=== PATIENT | female | born 1950 | race Caucasian/White ===

== ENCOUNTER → 2016-10-02 | Outpatient (CLI) | payer OTHER ==
[~2016-10-02] VITALS: Ht 149.9 cm; Wt 97.1 kg
[~2016-10-02] MED LIST: ACCUNEB SO1.25 MG/1 INH; ADVAIR HFA 230M12 GM INH; CELEXA20 MG PO; CLARITIN10 MG PO; CLEOCIN HCL300 MG PO; HYDROCODONE-APA1 TA1 PO; METFORMIN HCL500 MG PO; MINOCIN100 MG PO; PERCOCET 5-3251 EACH PO; PRINIVIL20 MG PO; SILVADENE20 GM TP
--- NOTE | ~2016-10-02 | CATHLAB ---
[facility] [place] [address] INVASIVE PROCEDURE REPORT Name: JC CARR Room #: REG TORREY Wiseman#: [id number] Admission: 10/02/16 Attend Phys: Berny Camarillo Discharge: Date of : 48 Date of Service: 10/03/16 0954 Report #: [id number] THIS REPORT FOR: //name// CC: Berny Prince DATE OF SERVICE: 10/02/2016 INDICATIONS: A 65-year-old female patient with chest pain and abnormal noninvasive assessment. PROCEDURES: 1. Left heart catheterization. 2. Selective left and right coronary angiography. 3. Measurement of left ventricular end diastolic pressures. 4. Supervision of conscious sedation. TOPOGRAPHICAL ENGINEER: Berny Vazquez M.D. BRIEF DESCRIPTION OF PROCEDURE: After informed consent was obtained, the patient was brought to the cardiac catheterization laboratory in stable condition. The patient's right groin was prepped and draped in the usual sterile manner after which lidocaine was then instilled. Utilizing a modified Seldinger technique, the right femoral artery was then accessed. Under fluoroscopic visualization using selective coronary catheters, the right and left coronaries were opacified and visualized. The left ventriculogram was likewise imaged per standard protocol with EDP being measured. Subsequent to this, the sheath was removed, hemostasis achieved. The patient tolerated the procedure well. There were no complications. FINDINGS: 1. RHYTHM: The patient's rhythm was sinus throughout the entire procedure. 2. HEMODYNAMICS: A. Aortic pressure 158/91. B. Left ventricular end diastolic pressure is 20-24. 3. FLUOROSCOPY: Under fluoroscopic visualization, there was minimal calcific plaquing noted along the epicardial coronary arteries, intramyocardial, or valvular structure of the heart. 4. ANGIOGRAPHY: This is a codominant system. A. Left main is of normal origin and caliber, bifurcates into left anterior descending and left circumflex free of high-grade disease. B. Left anterior descending is a moderate caliber type 3 vessel which has an approximately 40% lesion in its distal third and what appears to be a small bridge. Proximal to this, it gives rise to septal and diagonal branches along its course in the anterior interventricular sulcus prior to hooking the apex and terminating in the posterior aspect of the inferior apical wall. [facility] [address] [place] [address] INVASIVE PROCEDURE REPORT Name: PRITI CARRSA Room #: REG CL Bowen#: [id number] Admission: 10/02/16 Attend Phys: Berny Camarillo Discharge: Date of : 48 Date of Service: 10/03/16 0954 Report #: [id number] C. Left circumflex is a moderate caliber vessel, gives rise to marginal wall branches and a posterior wall PDA, which appears to be codominant. No significant high-grade lesions are noted. D. The right coronary is a moderate caliber vessel, courses posteriorly giving rise to co-PDA and which is free of high-grade disease. IMPRESSION: 1. Coronary artery disease, minimal nonobstructive. 2. Abnormal hemodynamics with slightly elevated left ventricular end-diastolic pressures. By: 0954 1549 Berny Vazquez MD /nt
[2016-10-02 08:41] LABS: HEMATOCRIT 44.7 % (37.0-47.0); HEMOGLOBIN 15.2 gm/dL (12.0-15.0); MCH 27.5 pg (26.0-34.0); MCV 80.8 fL (80.0-100.0); RBC 5.53 mil/uL (4.20-5.00); RDW 14.2 % (10.5-14.5); WBC 5.6 thou/uL (4.0-11.0)
[2016-10-02 08:43] VITALS: BP 156/78
[2016-10-02 08:50] LABS: CALCIUM 10.8 mg/dL (8.5-10.1); CREATININE 0.9 mg/dL (0.6-1.3); POTASSIUM 4.1 mmol/L (3.5-5.1)
== END | disposition home or self-care (01) ==
LOC: CATH 08:14
PROVIDERS: Internal Medicine
DX: I25.10 Atherosclerotic heart disease of native coronary artery without angina pectoris (principal); I10 Essential (primary) hypertension; E78.5 Hyperlipidemia, unspecified; G47.33 Obstructive sleep apnea (adult) (pediatric); F32.9 Major depressive disorder, single episode, unspecified; E11.9 Type 2 diabetes mellitus without complications; Z85.3 Personal history of malignant neoplasm of breast; Z90.711 Acquired absence of uterus with remaining cervical stump; Z98.890 Other specified postprocedural states

== ENCOUNTER → 2016-10-09 | Outpatient (CLI) | payer OTHER | LOC: HYPER 07:14 | DX: S20.361A Insect bite (nonvenomous) of right front wall of thorax, initial encounter (principal); S20.162A Insect bite (nonvenomous) of breast, left breast, initial encounter; Z85.3 Personal history of malignant neoplasm of breast; Z90.11 Acquired absence of right breast and nipple; W57.XXXA Bitten or stung by nonvenomous insect and other nonvenomous arthropods, initial encounter; Y93.89 Activity, other specified; Y92.89 Other specified places as the place of occurrence of the external cause; Y99.8 Other external cause status ==

== ENCOUNTER 2016-10-28 10:56 | Emergency (ER) | payer OTHER ==
[~2016-10-28] VITALS: Ht 152.4 cm; Wt 89.4 kg
[~2016-10-28 10:56] MED LIST changes: +NORCO 10-325 T1 EAC1 PO
[2016-10-28] MEDS ORDERED: HYDROCODONE-AP1 EAC6 PO (11:33)
[2016-10-28] MEDS ORDERED: DOXYCYCLINE 10100 MG PO (11:34)
[2016-10-28] MEDS ORDERED: GARAMYCIN3.5 GM (11:34)
[2016-10-28] MEDS ORDERED: CLOTRIMAZOLE-BE15 GM TP (11:35)
[2016-10-28] MEDS ORDERED: BETAMETHASONE D50 G3 TP (11:36)
[2016-10-28 12:16] LABS: ABSOLUTE NEUTROPHILS 4.3 thou/uL (1.4-8.2); BASOPHILS 1.5 % (0.0-2.0); EOSINOPHILS 1.8 % (0.0-3.0); HEMATOCRIT 43.3 % (37.0-47.0); HEMOGLOBIN 14.8 gm/dL (12.0-15.0); LYMPHOCYTES 19.3 % (24.0-44.0); MCHC 34.1 g/dL (28.0-37.0); MCV 82.2 fL (80.0-100.0); MONOCYTES 8.1 % (1.0-8.0); PLATELET COUNT 138 thou/uL (150-400); POLYS 69.3 % (36.0-66.0); RBC 5.27 mil/uL (4.20-5.00); RDW 14.8 % (10.5-14.5); WBC 6.2 thou/uL (4.0-11.0)
[2016-10-28 12:17] LABS: MANUAL DIFF NO
[2016-10-28 12:24] LABS: CALCIUM 9.7 mg/dL (8.5-10.1); CREATININE 0.9 mg/dL (0.6-1.0); POTASSIUM 4.3 mmol/L (3.5-5.1)
[2016-10-28] MEDS ORDERED: PERCOCET 5-3251 EACH PO (13:57)
[2016-10-28 14:26] VITALS: BP 147/75
== END 2016-10-28 14:27 | disposition home or self-care (01) ==
LOC: ER 10:56
PROVIDERS: Nurse Practitioner Family
DX: C79.51 Secondary malignant neoplasm of bone (principal); Z90.711 Acquired absence of uterus with remaining cervical stump; Z90.11 Acquired absence of right breast and nipple; Z90.49 Acquired absence of other specified parts of digestive tract; F32.9 Major depressive disorder, single episode, unspecified; Z85.3 Personal history of malignant neoplasm of breast; E78.5 Hyperlipidemia, unspecified; I10 Essential (primary) hypertension; E11.9 Type 2 diabetes mellitus without complications; Z88.5 Allergy status to narcotic agent; Z88.2 Allergy status to sulfonamides; F10.99 Alcohol use, unspecified with unspecified alcohol-induced disorder

== ENCOUNTER → 2016-10-31 | Outpatient (CLI) | payer OTHER ==
[~2016-10-31] VITALS: Ht 152.4 cm; Wt 88.5 kg
[~2016-10-31] MED LIST changes: +BETAMETHASONE D50 G3 TP; +CLOTRIMAZOLE-BE15 GM TP; +DOXYCYCLINE 10100 MG PO; +GARAMYCIN3.5 GM; +HYDROCODONE-AP1 EAC6 PO; +PERCOCET 7.5-31 EACH PO
--- NOTE | ~2016-10-31 | S ---
[facility] [address] [place] [address] SURGICAL PATH RPT PROCEDURE Name: JC CARR Room #: REG SAMIR Wiseman#: [id number] Admission: 10/31/16 Date of : 48 Discharge: Report #: [id number] Path Case #: [id number] PATHOLOGY REPORT DRAFT COLLECTION DATE: 10/31/2016 RECEIVED DATE: 11/01/2016 SPECIMEN(S) RECEIVED: A.Right sharlene sparrow
[2016-10-31 09:21] VITALS: BP 14/85
[2016-10-31 09:38] LABS: HEMATOCRIT 43.8 % (37.0-47.0); HEMOGLOBIN 14.6 gm/dL (12.0-15.0); MCH 27.7 pg (26.0-34.0); MCHC 33.4 g/dL (28.0-37.0); MCV 82.8 fL (80.0-100.0); RBC 5.29 mil/uL (4.20-5.00); RDW 14.7 % (10.5-14.5); WBC 5.3 thou/uL (4.0-11.0)
[2016-10-31 09:49] LABS: CALCIUM 9.8 mg/dL (8.5-10.1); CREATININE 0.7 mg/dL (0.6-1.0); POTASSIUM 4.1 mmol/L (3.5-5.1)
[2016-10-31 09:50] LABS: APTT 31.1 Seconds (24.5-32.8); INR 1.1; PROTIME 11.4 Seconds (9.3-11.4)
== END ==
LOC: SPEC 07:09
PROVIDERS: Radiology Diagnostic Radiology
DX: C41.9 Malignant neoplasm of bone and articular cartilage, unspecified (principal); Z90.710 Acquired absence of both cervix and uterus; Z85.3 Personal history of malignant neoplasm of breast; Z90.49 Acquired absence of other specified parts of digestive tract; F32.9 Major depressive disorder, single episode, unspecified; G47.33 Obstructive sleep apnea (adult) (pediatric); I10 Essential (primary) hypertension; E78.5 Hyperlipidemia, unspecified; E11.9 Type 2 diabetes mellitus without complications

== ENCOUNTER 2016-11-08 18:18 | Observation (INO) | payer OTHER ==
[~2016-11-08] VITALS: Ht 152.4 cm; Wt 89.4 kg
--- NOTE | ~2016-11-08 | EKG ---
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
[2016-11-08 18:19] VITALS: BP 173/80
[2016-11-08 19:25] LABS: ABSOLUTE NEUTROPHILS 4.3 thou/uL (1.4-8.2); BASOPHILS 0.5 % (0.0-2.0); EOSINOPHILS 2.5 % (0.0-3.0); HEMATOCRIT 40.9 % (37.0-47.0); HEMOGLOBIN 13.7 gm/dL (12.0-15.0); MCH 27.6 pg (26.0-34.0); MCHC 33.5 g/dL (28.0-37.0); MCV 82.4 fL (80.0-100.0); MONOCYTES 9.1 % (1.0-8.0); PLATELET COUNT 122 thou/uL (150-400); POLYS 71.9 % (36.0-66.0); RBC 4.96 mil/uL (4.20-5.00); RDW 15.1 % (10.5-14.5)
[2016-11-08 19:26] LABS: MANUAL DIFF NO
[2016-11-08 19:31] LABS: CALCIUM 9.5 mg/dL (8.5-10.1); CREATININE 0.8 mg/dL (0.6-1.0); POTASSIUM 3.8 mmol/L (3.5-5.1)
[2016-11-08 19:36] LABS: ALBUMIN 3.7 g/dL (3.4-5.0); TOTAL BILIRUBIN 0.6 mg/dL (<0.1-1.0); TOTAL PROTEIN 6.8 g/dL (6.4-8.2)
[2016-11-08] MEDS ORDERED: NORCO 10-325 T1 EACH PO (19:38)
[2016-11-08 20:53] VITALS: BP 176/89
[2016-11-08 21:00] VITALS: BP 137/75
[2016-11-09 04:00] VITALS: BP 124/66
[2016-11-09 08:51] VITALS: BP 140/65
[2016-11-09 11:54] VITALS: BP 144/77
[2016-11-09 20:49] VITALS: BP 137/68
[2016-11-09 23:36] VITALS: BP 142/69
[2016-11-10 00:05] LABS: HEPATITIS C VIRUS AB <0.1 (0.0-0.9)
[2016-11-10 04:16] VITALS: BP 143/55
[2016-11-10 04:23] LABS: HEMATOCRIT 40.6 % (37.0-47.0); HEMOGLOBIN 13.8 gm/dL (12.0-15.0); MCH 27.9 pg (26.0-34.0); MCV 82.1 fL (80.0-100.0); RBC 4.95 mil/uL (4.20-5.00); RDW 14.6 % (10.5-14.5); WBC 5.9 thou/uL (4.0-11.0)
[2016-11-10 04:37] LABS: ALBUMIN 3.8 g/dL (3.4-5.0); CALCIUM 10.1 mg/dL (8.5-10.1); CREATININE 0.8 mg/dL (0.6-1.0); POTASSIUM 4.2 mmol/L (3.5-5.1); TOTAL BILIRUBIN 0.6 mg/dL (<0.1-1.0); TOTAL PROTEIN 6.6 g/dL (6.4-8.2)
[2016-11-10 07:43] VITALS: BP 150/58
[2016-11-10] MEDS ORDERED: OXYCODONE HCL10 MG PO (10:46)
[2016-11-10] MEDS ORDERED: SENOKOT-S1 TA1 PO (10:46)
[2016-11-10] MEDS ORDERED: FENTANYL PA25 MCG/HR TRANSDERM (10:46)
[2016-11-10] MEDS ORDERED: MIRALAX17 GM PO (10:47)
[2016-11-10 11:06] VITALS: BP 150/58
== END 2016-11-10 11:58 | disposition home or self-care (01) ==
LOC: ER 18:18 → EROBS 20:10 → 4N 20:53
PROVIDERS: Emergency Medicine; Hospitalist; Nurse Practitioner Acute Care
DX: C79.51 Secondary malignant neoplasm of bone (principal); C50.919 Malignant neoplasm of unspecified site of unspecified female breast; M89.8X8 Other specified disorders of bone, other site; R11.0 Nausea; E11.9 Type 2 diabetes mellitus without complications; I10 Essential (primary) hypertension; G47.33 Obstructive sleep apnea (adult) (pediatric); I82.409 Acute embolism and thrombosis of unspecified deep veins of unspecified lower extremity; K59.00 Constipation, unspecified

== ENCOUNTER → 2016-11-28 | Outpatient (CLI) | payer OTHER ==
[~2016-11-28] MED LIST changes: +FENTANYL PA25 MCG/HR TRANSDERM; +MIRALAX17 GM PO; +NORCO 10-325 T1 EACH PO; +OXYCODONE HCL10 MG PO; +SENOKOT-S1 TA1 PO
== END ==
LOC: RAD 10:58
DX: Z85.3 Personal history of malignant neoplasm of breast (principal)

== ENCOUNTER → 2016-12-16 | Outpatient (CLI) | payer OTHER | LOC: HYPER | DX: S20.36 Insect bite (nonvenomous) of front wall of thorax (principal); L08.89 Other specified local infections of the skin and subcutaneous tissue; Z85.3 Personal history of malignant neoplasm of breast; W57.XXXD Bitten or stung by nonvenomous insect and other nonvenomous arthropods, subsequent encounter ==

== ENCOUNTER → 2017-01-17 | Outpatient (CLI) | payer OTHER ==
[~2017-01-17] MED LIST changes: +ATIVAN0.5 MG PO; +DILAUDID 2 MG TA2 MG PO; +FENTANYL PA50 MCG/HR TRANSDERM; +FENTANYL PATCH75 MCG TRANSDERM; +REGLAN 10 MG TA10 MG PO; +TRAMADOL 50 MG50 MG PO
== END ==
LOC: NUC 08:28
DX: C50.911 Malignant neoplasm of unspecified site of right female breast (principal); R11.2 Nausea with vomiting, unspecified; Z17.0 Estrogen receptor positive status [ER+]

== ENCOUNTER → 2017-01-21 | Outpatient (CLI) | payer OTHER | LOC: HYPER 01-06 08:28 | DX: S20.1 Other and unspecified superficial injuries of breast (principal); S20.36 Insect bite (nonvenomous) of front wall of thorax; L08.89 Other specified local infections of the skin and subcutaneous tissue; C79.51 Secondary malignant neoplasm of bone; Z85.3 Personal history of malignant neoplasm of breast; W57.XXXD Bitten or stung by nonvenomous insect and other nonvenomous arthropods, subsequent encounter ==

== ENCOUNTER → 2017-04-07 | Outpatient (CLI) | payer OTHER | LOC: NUC 09:34 → CAT 11:29 → NUC 11:32 | DX: M81.0 Age-related osteoporosis without current pathological fracture (principal) ==

== ENCOUNTER → 2017-12-24 | Outpatient (CLI) | payer OTHER ==
[~2017-12-24] MED LIST changes: +FEMARA2.5 MG PO; +FOSAMAX 70 MG T70 MG PO; +MELATONIN1 MG PO; +UNICOMPLEX M TA1 TA1 PO
== END ==
LOC: RAD 01:33
DX: Z12.31 Encounter for screening mammogram for malignant neoplasm of breast (principal)

== ENCOUNTER → 2018-12-17 | Outpatient (CLI) | payer OTHER ==
--- NOTE | 2018-12-22 20:17 | SLE ---
[facility] [address] [address] POLYSOMNOGRAPHY STUDY Name: JC CARR Room #: REG SAMIR M.Vic.#: [id number] Admission: 12/17/18 ������������������ Attend Phys: Domenic Corral MD Discharge: ������������������ Date of : 48 Report #: [id number] THIS REPORT FOR: //name// CC: Domenic Mazariegos MD DATE OF SERVICE: 12/17/2018 SLEEP STUDY DATE OF STUDY: 12/17/2018. ATTENDING PHYSICIAN: Jonnathan Mazariegos M.D. The patient is 68 years old who weighs 175 pounds with a BMI of 36.8. The patient's [place] score was 7. The patient had a recent sleep study in November and was found to have moderate SHAMIKA. As a result, the patient was referred back for in-lab CPAP titration study. During the night study, the patient spent 473 minutes in bed and slept for 371 minutes, with a sleep efficiency of 78%. Sleep latency was 10.9 minutes with a REM latency of 316 minutes. Overall, sleep architecture showed normal stage 1 sleep, increased stage 2 sleep, reduced N3 sleep and reduced REM sleep. EKG monitoring revealed an average heart rate of 62 beats per minute. No sustained arrhythmias were observed. PLMS were seen at an index of 85 per hour and 9 per hour caused EEG arousals. The patient was started on CPAP at 5 cm of water and titrated up to 14 cm of water. At the final pressure, the patient slept for 122 minutes, including 35 minutes of REM sleep. The patient had supine sleep on lower pressure, but not on the final pressure. The patient's AHI was reduced to 0 per hour and oxygen saturation remained above 91%. IMPRESSION: 1. Moderate sleep apnea diagnosed by recent home sleep study. 2. Severe periodic limb movements of sleep. RECOMMENDATIONS: 1. CPAP at 14 cm of water completely eliminated the patient's sleep apnea and should be used on a nightly basis. 2. Follow up in 4-6 weeks to assess compliance with CPAP and to document clinical improvement. [facility] [address] [place] [address] POLYSOMNOGRAPHY STUDY Name: [facility] Room #: REG SAMIR Wiseman#: [id number] Admission: 12/17/18 ������������������ Attend Phys: Domenic Corral MD Discharge: ������������������ Date of : 48 Report #: [id number] 3. Weight loss is strongly advised. 4. Avoid MACHINE STEMMER depressants. 5. Cautioned regarding driving until symptoms of sleep apnea resolve with the use of CPAP. 6. The patient should also be further evaluated for symptoms of restless legs during the day and if present, it can be treated with dopaminergic agonist agents. ��������������������������������������������� <ELECTRONICALLY SIGNED> ���������������������������������������� By: Domenic Corral MD ��������������������������������������������� 12/22/182016 0053 0115 Domenic Corral MD /nt
== END ==
LOC: SLEEPLAB 09:43
DX: G47.33 Obstructive sleep apnea (adult) (pediatric) (principal); G47.61 Periodic limb movement disorder

== ENCOUNTER 2019-07-19 20:05 | Inpatient (IN) | payer OTHER ==
[~2019-07-19] VITALS: Ht 152.4 cm; Wt 83.6 kg
[2019-07-19 20:07] VITALS: BP 191/75
[2019-07-19] MEDS ORDERED: DURAGESIC1 EAC4 TRANSDERM (20:17)
[2019-07-19] MEDS ORDERED: TRAMADOL 50 MG50 MG PO (20:19)
[2019-07-19] MEDS ORDERED: DEXAMETHASONE4 MG PO (20:19)
[2019-07-19 21:55] LABS: ABSOLUTE NEUTROPHILS 7.5 thou/uL (1.4-8.2); BASOPHILS 0.7 % (0.0-2.0); HEMATOCRIT 48.2 % (37.0-47.0); HEMOGLOBIN 15.9 gm/dL (12.0-15.0); LYMPHOCYTES 20.8 % (24.0-44.0); MCH 28.3 pg (26.0-34.0); MCV 85.6 fL (80.0-100.0); PLATELET COUNT 175 thou/uL (150-400); POLYS 71.5 % (36.0-66.0); RBC 5.63 mil/uL (4.20-5.00); RDW 13.5 % (10.5-14.5); WBC 10.6 thou/uL (4.0-11.0)
[2019-07-19 22:03] LABS: CALCIUM 9.9 mg/dL (8.5-10.1); CREATININE 0.8 mg/dL (0.6-1.0); POTASSIUM 4.1 mmol/L (3.5-5.1)
[2019-07-19 22:07] VITALS: BP 151/67
[2019-07-19 22:25] VITALS: BP 147/63
[2019-07-19 23:00] VITALS: BP 128/69
[2019-07-19 23:03] VITALS: BP 128/69
[2019-07-19 23:13] LABS: INR 1.1; PROTIME 10.8 Seconds (9.3-11.4)
--- NOTE | 2019-07-20 00:15 | NUR ---
ADMISSION ASSESSMENT COMPLETED. PT ALERT AND ORIENTED AND ABLE TO ANSWER ALL ADMISSION QUESTIONS. R ARM ON A SLING. PT HAS EXTREME PAIN WITH ANY SLIGHT MOVEMENT OR EVEN TOUCH TO THE ARM.MORPHINE IVP GIVEN. PT DENIES ANY NAUSEA OR VOMITING. SHE IS NPO AFTER MIDNOC. SHE HAS A FENTANYL PATCH TO THE R DELTOID THAT IS DUE TO BE CHANGED TOMORROW.DENIES ANY HEADACHES OR CHEST PAIN.
[2019-07-20 03:35] VITALS: BP 98/53
[2019-07-20 07:10] VITALS: BP 95/51
--- NOTE | 2019-07-20 15:47 | NUR ---
Assumed care approx. 0700 this AM. Brace was fitted by Program Clinician this morning which was very painful for the patient. Pain has been managed with IV morphine and PO tramadol. Pt working towards discharge tomorrow after pain management achieved & tolerable activity. at bedside this AM for support. Will continue to monitor. Pt slowly progressing toward plan of care goals.
--- NOTE | 2019-07-20 16:30 | NUR ---
INITIAL ASSESSMENT: Pt evaluated for d/c planning needs. Reviewed chart and spoke with nurse, pt and spouse. Pt is alert and oriented. Pt lives in house with spouse and was independent with ADL's prior to admission to the hospital. Pt has walker at home. Pt has had home health in the past, and wants to use them again. They are unsure of the name of company providing home health. Will contact physician on Friday to obtain home health info. Pt plans on returning home with on d/c. Will remain available to assist as needed.
[2019-07-20 19:56] VITALS: BP 110/52
[2019-07-21 04:44] VITALS: BP 118/53
--- NOTE | 2019-07-21 06:26 | NUR ---
PT C/O PAIN ON HER R ARM,MANAGED WITH MED.UP WITH ASSIST X1 TO THE TOILET.NON WT BEARING TO HER R UPPER EXT.BRACE TO HER R ARM.PT LOOKING FORWARD TO BE DC TODAY.FALL PRECAUTIONS IN PLACE,CALL LIGHT WITHIN REACH.
[2019-07-21 07:35] VITALS: BP 160/81
--- NOTE | 2019-07-21 08:08 | HC ---
[facility] [place] [address] [address] [place] [address] CONSULTATION Name: JC CARR Room #: 448-P ADM IN M.R.#: [id number] Admission: 07/19/19 Attend Phys: Deena Rivero MD Discharge: Date of : 48 Report #: [id number] THIS REPORT FOR: //name// CC: Deena Prince REASON FOR CONSULTATION: Metastatic breast cancer with right humeral fracture, thought to be pathologic. HISTORY OF PRESENT ILLNESS: Very pleasant 68-year-old patient well known to me with a history of hormone positive breast cancer, has been on Arimidex for a number of years, who unfortunately had a PET scan that showed progression from last week. This showed both bony progression. Also questionable skull base mass versus brain metastasis. Because of her breast implant, she was unable to undergo an MRI that we had requested. She was going to see Dr. Cas Taylor today. I talked to him yesterday. We are considering CT head with and without contrast to better elucidate this. The patient is having some right arm pain. She has some general aches and pains lately related to her metastatic breast cancer. No new bowel changes. Does have some blood on her toilet paper when she wipes occasionally, is not aware of any hemorrhoids or not aware of any polyps. No new arm or leg swelling. No new constipation troubles. No new shortness of air troubles. Weight has been stable. PAST MEDICAL HISTORY: Notable for the metastatic breast cancer, details not available at this time. ____ talked about changing to Faslodex with the addition of palbociclib and also consider bone active medicines. Also, history of tonsillectomy, history of hysterectomy, history of cholecystectomy. The right breast cancer resected with bindery machine feeder offbearer placed, no implants placed in. Also history of diabetes type 2 diet management, hypertension, obstructive sleep apnea, mood disorder. SOCIAL HISTORY: Retired, has a supportive who is not currently in the room. FAMILY HISTORY: Noncontributory. MEDICATIONS: At this time in the hospital currently include fentanyl 25 mcg patch every 72 hours, multivitamin with iron daily, docusate with senna 1 tab daily, lisinopril 20 daily, dexamethasone 4 mg with breakfast, citalopram 40 mg with breakfast, cyclobenzaprine 5 mg q. 8 hours p.r.n. p.o., lorazepam 0.5 q.6 hours p.r.n. p.o., tramadol 50 mg q.4 p.r.n., Zofran 4 mg IV p.r.n., melatonin 5 mg at bedtime, letrozole 2.5 mg at bedtime, this will be stopped as an outpatient, p.r.n. morphine. [address] [address] CONSULTATION Name: JC CARR Room #: 448-P ADM IN M.R.#: [id number] Admission: 07/19/19 Attend Phys: Deena Rivero MD Discharge: Date of : 48 Report #: [id number] PHYSICAL EXAMINATION: GENERAL: The patient appears her stated age. VITAL SIGNS: Height is 5 feet which is 152.4 cm. Weight is 184 pounds, which is 83.6 kilograms. Blood pressure 95/51, O2 sat 96% on room air, respirations 70, pulse 65, temperature afebrile at 98.4. MOOD: The patient is alert, unconversant and pleasant. NEUROLOGIC: The patient is moving the left arm and both legs. Speech and thought pattern normal. Right arm is not being moved much because of pain. LUNGS: Appear to have clear respiratory motion that is symmetric and unlabored. HEART: Appears regular rate. LYMPHATICS: No enlarged lymph nodes in the supraclavicular, cervical, left axillary or inguinal region, right axilla not examined because of right humeral fracture. ABDOMEN: Slightly obese. No masses, nontender. EXTREMITIES: Without clubbing or cyanosis. LABORATORY DATA: Here notable for BUN of 19, creatinine of 0.8, INR 1.1. White count 10.6, hemoglobin 15.9, platelets 175. Differential nonacute. ASSESSMENT AND PLAN: 1. Stage 4 breast cancer with recent progression. Plans to stop letrozole and continue with Faslodex, palbociclib. 2. Right humeral fracture. Ortho suggesting conservative management. 3. Questionable brain mets. We will order CT head with and without contrast. Await input by Dr. Cas Taylor. Also, we will await whether he suggests radiation therapy to the right humerus. 4. Bony metastasis. The patient has been reluctant to do bisphosphonates ____ in the past. We will once again revisit this. 5. Pain medicines, continue fentanyl, tramadol and other drugs. 6. Hypertension. Meds per others. 7. Diabetes type 2. Meds per others. 8. Obstructive sleep apnea ____. 9. Mood disorder. Meds per others will be available. <ELECTRONICALLY SIGNED> By: Jorge Schwartz MD 07/21/19 0808 0829 1120 Jorge Schwartz MD /nt
[2019-07-21] MEDS ORDERED: HYDROCODON-ACE1 EAC7 PO (10:24)
[2019-07-21] MEDS ORDERED: CYCLOBENZAPRINE5 MG PO (10:24)
[2019-07-21 12:33] VITALS: BP 160/81
--- NOTE | 2019-07-21 13:49 | NUR ---
DC ORDERES RECEIVED. DC INSTRUCTIONS, SCRIPTS AND F/U APPOINTMENT REVIEWED WITH PT. TREE SURGEON HELPER WHEELED PT TO MAIN ENTRANCE. IV REMOVED FROM L FA.
--- NOTE | 2019-07-21 15:05 | NUR ---
Following for d/c planning. Spoke with physicians and plan is for pt to go home today with home health. Pt's insurance changed at the beginning of the year and currently has [employer] Elite. Contacted [facility], but they do not have a bath aide. Called [facility] and have not heard back if they are in network or pt's [id number]-[id number] cost. [facility] is not in network with insurance. [facility] is not in network with insurance. Called [facility] back and they are able to accept pt. Asked cyber intel planner to fax referral. No other needs indicated.
[2019-07-21 15:42] VITALS: BP 160/81
--- NOTE | 2019-07-21 16:41 | NUR ---
FAXED REFERRAL TO [facility] SPOKE WITH FERNY NELSON INTAKE SHE RECEIVED REFERRAL AND CAN ACCEPT. FAXED DC ORDERS/SUMMARY SPOKE WITH ISAC SHE RECEIVED DC ORDERS AND WILL NOTIFY PT TIME OF VISITS.
== END 2019-07-21 14:38 | disposition home health service (06) | DRG 543 ==
LOC: ER 20:05 → EROBS 21:56 → 4S 21:56
PROVIDERS: Emergency Medicine; Nurse Practitioner Acute Care; ADMIT Hospitalist
DX: M84.521A Pathological fracture in neoplastic disease, right humerus, initial encounter for fracture (principal); C79.51 Secondary malignant neoplasm of bone; C79.81 Secondary malignant neoplasm of breast; C80.1 Malignant (primary) neoplasm, unspecified; E11.9 Type 2 diabetes mellitus without complications; I10 Essential (primary) hypertension; G47.33 Obstructive sleep apnea (adult) (pediatric); F39 Unspecified mood [affective] disorder; C50.919 Malignant neoplasm of unspecified site of unspecified female breast; F32.9 Major depressive disorder, single episode, unspecified; G47.00 Insomnia, unspecified; R63.4 Abnormal weight loss; Z68.36 Body mass index [BMI] 36.0-36.9, adult; Z90.11 Acquired absence of right breast and nipple; Z90.710 Acquired absence of both cervix and uterus; Z79.899 Other long term (current) drug therapy; Z88.5 Allergy status to narcotic agent; Z88.2 Allergy status to sulfonamides; Z90.89 Acquired absence of other organs; Z90.49 Acquired absence of other specified parts of digestive tract
CPT/HCPCS: 10100; 10195